=== PATIENT | male | born 1950 | race Caucasian/White ===

== ENCOUNTER 2019-12-04 10:26 | Emergency (ER) | payer MEDICARE, OTHER, SELFPAY ==
--- NOTE | ~2019-12-04 | XR_ITS ---
EXAMINATION: XR lumbar spine 2-3V EXAM DATE: 12/04/2019 11:04 INDICATION: No known recent injury provided at this time. Pain of the lower back. TECHNIQUE: Lumber spine frontal, lateral, lateral L5-S1 projections for interpretation. There is no prior study for comparison. FINDINGS: There is moderate disc disease at L3-4, mild to moderate at the other lumbar levels. There is mild to moderate lumbar facet arthropathy. There is 2-3 mm retrolisthesis L1 on L2, L2 on L3 and L3 on L4. Sacrum, sacroiliac joints, sacral arcuate lines are intact. Paraspinal soft tissue is unrem arkable. IMPRESSION: 1. Mild to moderate lumbar spondylosis. Reviewed, dictated and finalized at location A. [employer] PRINTER
--- NOTE | 2019-12-04 10:28 | ED.GENADULT ---
HPI - General Adult General Chief complaint: Back Pain/Injury Stated complaint: BACK PAIN/CONSTIPATION Time Seen by Provider: 12/04/19 10:44 Source: patient and RN notes reviewed Mode of arrival: ambulatory History of Present Illness HPI narrative: This patient has had a 2-year history of chronic back pain in the lumbar area for which she is seeing a chiropractor for. He has had several adjustments and now sees the chiropractor on a monthly basis for adjustments as a maintenance therapy. He has had a 5 to 6-day history though of increased back pain right lumbar more than left lumbar. The pain radiates down into the lateral right calf and onto the sole of the right foot. It is associated with some numbness sensation but not tingling sensation. He has no left leg or left foot pain or numbness or tingling. He has had no trauma to his back. He states he worked at a [employer] where he did a lot of physical activity until he retired. He is also had constipation during the past 5 days. He has not had a bowel movement in 5 days. He is not having abdominal pain. There is been no blood in the stools or black stools. He has not noticed any abdominal distention. He did go to a pharmacy and picked up generic MiraLAX and used it once without having a bowel movement, but did not take it regularly. He normally has a bowel movement once every 1 to 2 days. He is never had any history of any colon polyps or colon surgeries or cancers. He has not had any heartburn. He is not had any history of pancreatitis, hepatitis, gallbladder disease, Crohn's disease, ulcerative colitis. He has had no nausea, no vomiting, no diarrhea. He has taken [id number] Advil for treatment of the back pain. It has helped a little. Nighttime is worse for him whenever he lies down. The pain is beginning to disturb his sleep. He states he has never been diagnosed as having a ruptured disc in his back in the past. He is having no difficulty starting or controlling his urine stream. He has had no incontinence. He has had no numbness , no tingling, and no pain in the genital or rectal areas. The patient did go to his primary care's office today and talked the office receptionist and they did schedule him an appointment for this problem for December 14, 2019. Related Data Home Medications Medication Instructions Recorded Confirmed atorvastatin 20 mg PO DAILY 12/04/19 12/04/19 ibuprofen [Advil] 200 mg PO Q6H PRN 12/04/19 12/04/19 lisinopril 30 mg PO DAILY 12/04/19 12/04/19 Allergies Allergy/AdvReac Type Severity Reaction Status Date / Time No Known Allergies Allergy Verified 12/04/19 10:41 Review of Systems Review of Systems: Narrative: CONSTITUTIONAL: Denies fever, chills, or sweats. Noncontributory except as pertains to the past medical history and history of present illness. EYES: Denies visual changes, redness, or discharge. ENT: Denies rhinorrhea, congestion, sore throat, or otalgia. CARDIOVASCULAR: Denies chest pain, palpitations, or edema. RESPIRATORY: Denies cough or dyspnea. GASTROINTESTINAL: Denies abdominal pain, nausea, vomiting, or diarrhea. GENITOURINARY: Denies dysuria or hematuria. SKIN: Denies rash or itching. MUSCULOSKELETAL: Denies back pain, joint pain, or myalgia. NEUROLOGIC: Denies headache, numbness, or weakness. PSYCHIATRIC: Denies anxiety or depression. [facility] Family History Family History (Updated 04/27/19 @ 15:19 by DOCTOR UNKNOWN) Father Family history of cardiovascular disease Acute myocardial infarction Family history of coronary artery disease Sibling Family history of lymphoma Social History Social History Smoking status: Never smoker Second hand tobacco smoke exposure: No Alcohol intake: current Comments At time of signature, I have reviewed and agree with nursing past medical, surgical, social, and family history.Please see nursing chart for further information. There is no relevant family history pertinent to the p
[2019-12-04 10:32] VITALS: BP 140/87; PULSE 77; RESP 20; TEMP 36.7; O2SAT 100
== END 2019-12-04 11:26 | disposition home or self-care (01) ==
PROVIDERS: Emergency Provider Family Medicine; PCP Family Medicine
DX: M54.31 Sciatica, right side (principal); K59.00 Constipation, unspecified; E78.00 Pure hypercholesterolemia, unspecified; I10 Essential (primary) hypertension
CPT/HCPCS: 72100; 99213; G0463

== ENCOUNTER 2020-03-28 00:33 | Outpatient (CLI) | payer MEDICARE, OTHER, SELFPAY ==
[2020-03-28 16:41] LABS: SARS-CoV-2 RNA PCR Negative
== END 2020-03-28 00:34 | disposition home or self-care (01) ==
LOC: ANHCOVIDDT 00:33
PROVIDERS: PCP Family Medicine; Visit Provider Internal Medicine Gastroenterology
DX: Z01.812 Encounter for preprocedural laboratory examination (principal); Z20.828 Contact with and (suspected) exposure to other viral communicable diseases
CPT/HCPCS: 87635; C9803; U0003

== ENCOUNTER 2020-03-30 03:08 | Day surgery (SDC) | payer MEDICARE, OTHER, SELFPAY ==
[2020-03-24 15:10] VITALS: BMI 22.4
[2020-03-30 08:21] VITALS: BP 146/85; PULSE 73; RESP 18; TEMP 37.1; O2SAT 100; BMI 18.3
[2020-03-30] MEDS: LACTATED RINGERS 1,000 ML 150 ML IV CONT (08:31)
--- NOTE | 2020-03-30 09:39 | WPDANESEPPF ---
Anes - Initial Pre Proc Eval Procedure: Operation Date: 03/30/20 09:30 Proposed Procedures p Colonoscopy - Sebastien Stoddard MD Date/Time: 03/30/20 09:39 Surgeon: Sebastien Stoddard MD Pre Op Diagnosis: constipation Patient Data Age: 69 Gender: M Height: 6 ft 6 in Weight: 72.3 kg Last Vital Signs Temp 98.8 F 03/30/20 08:21 Pulse 73 03/30/20 08:21 Resp 18 03/30/20 08:21 BP 146/85 H 03/30/20 08:21 Pulse Ox 100 03/30/20 08:21 Allergies Allergy/AdvReac Type Severity Reaction Status Date / Time No Known Allergies Allergy Verified 03/30/20 08:18 Home Medications Medication Instructions Recorded Confirmed Type atorvastatin 20 mg tablet 20 mg PO DAILY #30 tablet 12/14/19 03/30/20 Rx lisinopril 30 mg tablet 30 mg PO DAILY #30 tablet 12/14/19 03/30/20 Rx Patient hx anesthesia problems: none Family hx anesthesia problems: none PMFSH Past Medical History Medical History (Updated 03/15/20 @ 09:59 by Mecca Remy MD) Chronic low back pain Hyperlipidemia Hypertension Surgical History Surgical History No pertinent past surgical history Social History Social History Smoking status: Never smoker Second hand tobacco smoke exposure: No Alcohol intake: current Substance use: never Substance use type: does not use Gender identity (if verbalized by the patient): Male Spiritual care concerns: Yes Agree to blood products: Yes Anes - Eval Final PreProcedure Day of Procedure 03/30/20 09:39 Patient weight: normal Heart: regular rate and rhythm Lungs: clear to auscultation Airway: Mallampati scale class II Neurological: alert and oriented Last oral intake: >/= 8 hours ASA classification: II Emergent: no Anesthetic plan: proceed Anesthesia type and monitoring: general GIVS and standard monitoring Informed Consent: The patient's anesthetic plan and its attendant risks and benefits were discussed with the patient/family/POA. Questions were solicited and answers provided to the satisfaction of the patient/family/POA.
[2020-03-30] MEDS: CENTRAL LINE FLUSH 20 ML XX (11:29)
--- NOTE | 2020-03-30 11:47 | WPDHPUPDATE1 ---
History and Physical Update Update Date/Time: 03/30/20 11:47 History and Physical has been reviewed, including an updated exam of the patient. There are NO changes in the patient's condition. Risks, benefits, and alternatives have been discussed and questions answered. Patient agrees to proceed with procedure.
[2020-03-30 11:51] VITALS: BP 80/51; PULSE 67; RESP 18; O2SAT 100
[2020-03-30 12:01] VITALS: BP 78/48; PULSE 67; RESP 18; O2SAT 100
[2020-03-30 12:11] VITALS: BP 106/68; PULSE 69; RESP 18; O2SAT 100
[2020-03-30 12:21] VITALS: BP 115/70; PULSE 69; RESP 18; O2SAT 100
== END 2020-03-30 12:46 | disposition home or self-care (01) ==
PROVIDERS: PCP Family Medicine; Visit Provider Internal Medicine Gastroenterology
PROC: 0DJD8ZZ Inspection of Lower Intestinal Tract, Via Natural or Artificial Opening Endoscopic (ICD-10-PCS; CPT 45378; principal; 2020-03-30 09:30)
DX: K59.00 Constipation, unspecified (principal); D12.3 Benign neoplasm of transverse colon; D12.2 Benign neoplasm of ascending colon; D12.8 Benign neoplasm of rectum; K64.8 Other hemorrhoids; I10 Essential (primary) hypertension; E78.5 Hyperlipidemia, unspecified; M54.9 Dorsalgia, unspecified; G89.29 Other chronic pain
CPT/HCPCS: 45385; 45381; 88305; J2370; J2704; J7120

== ENCOUNTER 2020-05-31 12:25 | Outpatient (CLI) | payer MEDICARE, OTHER, SELFPAY ==
--- NOTE | ~2020-05-31 | CT_ITS ---
EXAMINATION: CT abd pelvis lumbar wo con EXAM DATE: 05/31/2020 12:57 INDICATION: Right upper quadrant and right lower quadrant pain. TECHNIQUE: Spiral CT of the abdomen and pelvis and lumbar spine was performed without contrast. Axi al, coronal and sagittal images were reviewed. The dose-length product (DLP) for this examination wa s 308.14 mGy-cm. The exposure was tailored according to patient size (auto mA exposure control), and iterative reconstruction (ASIR) was used as additional dose reduction technique. There is no prior study for comparison. FINDINGS: The liver, spleen, adrenal glands and pancreas are unremarkable. Gallbladder is unremarkab le. There is no nephrolithiasis or hydronephrosis. There is mild prostatomegaly. The bladder is u nremarkable. There is no retroperitoneal or pelvic lymphadenopathy. There is mild to moderate scat tered arteriosclerotic disease. The appendix is normal. The stomach and small bowel are unremarkable. There is expected amount of c olonic stool. No free intraperitoneal gas. The heart is normal in size. There are no pericardial or pleural effusions. The lung bases are unremarkable. There are no osteoblastic or osteolytic lesi ons identified. LUMBAR SPINE: Paraspinal soft tissue is unremarkable. There are no acute fractures identified. Sacroi liac joints are unremarkable. There is no spondylolysis. There is 2-3 mm retrolisthesis L3 on L4. The vertebral bodies are otherwise aligned. There is moderate disc disease from T11 through L5, mild to moderate L5-S1. T12-L1: There is a mild diffuse disc bulge. Facet arthropathy: Mild. Neural foraminal stenosis: Mild right. Central canal stenosis: Mild. L1-L2: There is a mild to moderate diffuse disc bulge. Facet arthropathy: Mild to moderate. Neural foraminal stenosis: Mild to moderate bilateral. Central canal stenosis: Mild to moderate. L2-L3: There is a moderate diffuse disc bulge. Facet arthropathy: Moderate. Neural foraminal stenosis: Mild to moderate bilateral. Central canal stenosis: Mild to moderate. L3-L4: There is a moderate diffuse disc bulge. Facet arthropathy: Moderate. Neural foraminal stenosis: Moderate bilateral. Central canal stenosis: Moderate. L4-L5: There is a moderate diffuse disc bulge. Facet arthropathy: Moderate to severe. Neural foraminal stenosis: Moderate bilateral. Central canal stenosis: Moderate to severe. L5-S1: There is a mild to moderate diffuse disc bulge. Facet arthropathy: Severe left, moderate right. Neural foraminal stenosis: Mild to moderate left, mild right. Central canal stenosis: Mild to moderate. IMPRESSION: 1. L4-5 moderate to severe central canal stenosis. 2. Overall moderate lumbar spondylosis. 3. Mild prostatomegaly. 4. No acute intra-abdominal findings. Reviewed, dictated and finalized at location A.
== END 2020-05-31 12:26 | disposition home or self-care (01) ==
PROVIDERS: PCP Family Medicine; Visit Provider Family Medicine
DX: M47.896 Other spondylosis, lumbar region (principal); N40.0 Benign prostatic hyperplasia without lower urinary tract symptoms
CPT/HCPCS: 72131; 72133; 74176

== ENCOUNTER 2020-08-22 06:45 | Outpatient (CLI) | payer MEDICARE, OTHER, SELFPAY ==
--- NOTE | ~2020-08-22 | MR_ITS ---
EXAMINATION: MR lumbar spine wo con DATE: 08/22/2020 07:48 INDICATION: Intervertebral disc disorder with radiculopathy. Low back pain and right buttock pain. TECHNIQUE: Magnetic resonance imaging (MRI) of the lumbar spine was performed without intravenous con trast. Sequences included sagittal T2-weighted FSE, sagittal T2-weighted FS FSE, sagittal T1-weighted FSE, and axial T2-weighted FSE. COMPARISON: Lumbar spine radiographs 12/04/2019 FINDINGS: There is 3 mm retrolisthesis of L1 on L2. There is mild chronic anterior wedging of T12 and L1 vertebral bodies. There are Schmorl's nodes at multiple levels. There is moderately decreased dis c height at T12-L1, L1-L2, and L2-L3, severely decreased disc height at L3-L4, and moderately decreas ed disc height at L4-L5. The distal spinal cord signal intensity is normal. The conus medullaris is a t L1. The following disc levels are specifically discussed: T12-L1: The disc is bulging and has an annular fissure. There is mild bilateral facet joint osteoarth ritis. There is mild bilateral neural foraminal stenosis. There is mild central canal stenosis. L1-L2: The disc is bulging and has an annular fissure. There is mild bilateral facet joint osteoarthr itis. There is mild right and moderate left neural foraminal stenosis. There is mild central canal st enosis. L2-L3: The disc is bulging and has an annular fissure. There is moderate right and mild left facet jhoan int osteoarthritis. There is moderate bilateral neural foraminal stenosis. There is mild central mireya l stenosis. L3-L4: The disc is bulging as an annular fissure. There is moderate bilateral facet joint osteoarthri tis. There is moderate bilateral neural foraminal stenosis. There is mild central canal stenosis. L4-L5: The disc is bulging and has an annular fissure. There is severe bilateral facet joint osteoart hritis. There is moderate bilateral neural foraminal stenosis. There is moderate central canal stenos is. L5-S1: The disc is bulging. There is severe bilateral facet joint osteoarthritis. There is mild bilat eral neural foraminal stenosis. There is mild central canal stenosis. IMPRESSION: 1. Severe lumbar spondylosis. Reviewed, dictated and finalized at location A.
== END 2020-08-22 06:46 | disposition home or self-care (01) ==
PROVIDERS: PCP Family Medicine; Visit Provider Neurological Surgery
DX: M47.896 Other spondylosis, lumbar region (principal)
CPT/HCPCS: 72148

== ENCOUNTER 2024-07-03 10:56 | Outpatient (CLI) | payer MEDICARE, OTHER, SELFPAY ==
--- NOTE | ~2024-07-03 | XR_ITS ---
EXAMINATION: XR abdomen obstructive series DATE: 07/03/2024 11:18 INDICATION: Constipation. TECHNIQUE: Upright and supine views of the abdomen on 3 radiographs were obtained. COMPARISON: CT abdomen and pelvis 05/31/2020 FINDINGS: There are no dilated loops of bowel. There is a large volume of stool in the colon. No free intraperitoneal gas. IMPRESSION: 1. Nonobstructive bowel gas pattern. Reviewed, dictated and finalized at location A.
== END 2024-07-03 10:57 | disposition home or self-care (01) ==
PROVIDERS: PCP Family Medicine; Visit Provider Physician Assistant Medical
DX: K59.00 Constipation, unspecified (principal)
CPT/HCPCS: 74019

== ENCOUNTER 2024-07-29 06:36 | Outpatient (CLI) | payer MEDICARE, OTHER, SELFPAY ==
--- NOTE | ~2024-07-29 | CT_ITS ---
CT of the Abdomen and Pelvis: Indication: Abdominal pain Technique: 2.5 mm axial scans were obtained through the abdomen and pelvis following intravenous adm inistration of 100 cc of Omnipaque 350. Dose reduction technique was used on this scan by utilizing a utomated exposure control and iterative reconstruction technique. The dose-length product (DLP) was 2 22.11 mGy-cm. Findings: Scans through the lung bases are unremarkable. The liver, spleen, pancreas, gallbladder, adrenals and kidneys are within normal limits. There are at herosclerotic calcifications of the aorta. No lymphadenopathy. No bowel obstruction or bowel wall thickening. There is no evidence to suggest acute appendicitis. Images through the pelvis were performed. Urinary bladder unremarkable. Prostate gland is enlarged. A scites. Impression: No acute abnormality. Enlarged prostate gland. Reviewed, dictated and finalized at location . Impression: No acute abnormality. Enlarged prostate gland.
[2024-07-29 07:19] LABS: Estimated Glomerular Filt Rate > 60
== END 2024-07-29 06:37 | disposition home or self-care (01) ==
PROVIDERS: PCP Family Medicine; Visit Provider Family Medicine
DX: R10.9 Unspecified abdominal pain (principal); N40.0 Benign prostatic hyperplasia without lower urinary tract symptoms
CPT/HCPCS: 74177; Q9967

== ENCOUNTER 2024-08-20 12:44 | Emergency (ER) | payer MEDICARE, OTHER, SELFPAY ==
[2024-08-20 13:01] VITALS: BP 117/80; PULSE 80; RESP 18; TEMP 36.7; O2SAT 100
--- NOTE | 2024-08-20 13:45 | ED.GENADULT ---
HPI - General Adult General Chief complaint: Unspecified Stated complaint: constipation and R sided back pain Time Seen by Provider: 08/20/24 13:41 Source: patient Mode of arrival: ambulatory Limitations: no limitations History of Present Illness HPI narrative: This is a 74-year-old male who presents to the ED for chief complaint of chronic constipation. Patient reports that he has abdominal pain and back pain and attributes this to his constipation. States that he is being seen by his PCP for this multiple times and has not had any relief with Linzess. Patient is concerned because he has been losing weight but also states that he has not been eating as much due to discomfort from constipation. States that he is worried about cancer but he had a colonoscopy 4 years ago. He has GI appointment upcoming on September 03. States last bowel movement was 2 days ago. Denies nausea, vomiting, fevers, chills or any further complaint. Related Data Allergies Allergy/AdvReac Type Severity Reaction Status Date / Time No Known Allergies Allergy Verified 08/20/24 12:45 Review of Systems Review of Systems: All systems as dictated in [facility] Past Medical History Medical History Adenomatous colon polyp Aortic stenosis Chronic low back pain Encounter for immunization Heart murmur Hyperlipidemia Hypertension Spinal stenosis at L4-L5 level Surgical History Surgical History No pertinent past surgical history Family History Family History Father Family history of cardiovascular disease Acute myocardial infarction Family history of coronary artery disease Sibling Family history of lymphoma Social History Social History Smoking status: Never smoker Second hand tobacco smoke exposure: No Alcohol intake: current Alcohol use details: Occasional. Substance use: never Substance use type: does not use Lack of Transportation: No Lack of Food: Never True Current Housing: I Have Housing Concerned About Future Housing: No Difficulty Paying Gas/Electric Bills: No Difficulty Paying for Meds: No Currently Unemployed: No Education: High School Diploma/GED Difficulty w/ Childcare or Family Care: No Living arrangements: alone Occupation/Education: retired Gender identity (if verbalized by the patient): Male Sexual Orientation (if Verbalized by the Patient): Straight or Heterosexual Spiritual care concerns: Yes Agree to blood products: Yes Exam Narrative: GENERAL: Well-appearing, well-nourished, and in no acute distress. HEAD: Normocephalic, atraumatic. EYES: PERRLA and EOMI. ENT: Nares clear, no rhinorrhea or epistaxis. Mucous membranes moist. Oropharynx without tonsillar hypertrophy exudate or other lesions. NECK: Supple. No adenopathy or masses. CHEST: No respiratory distress. Clear to auscultation. No wheezes rales or rhonchi HEART: Regular rate and rhythm. No murmur heard. Normal peripheral pulses. ABDOMEN: Soft, nontender, nondistended, normal active bowel sounds. MSK: Normal range of motion. No edema. SKIN: Warm, dry, no rash. NEURO: Alert and oriented x4. No focal deficits. PSYCH: Normal mood and affect. Course Vital Signs Vital signs: Vital Signs Temperature 98.1 F 08/20/24 13:01 Pulse Rate 80 08/20/24 13:01 Respiratory Rate 18 08/20/24 13:01 Blood Pressure 117/80 08/20/24 13:01 Pulse Oximetry 100 08/20/24 13:01 Oxygen Delivery Room Air 08/20/24 13:01 Temperature 98.1 F 08/20/24 13:01 Pulse Rate 80 08/20/24 13:01 Respiratory Rate 18 08/20/24 13:01 Blood Pressure 117/80 08/20/24 13:01 Pulse Oximetry 100 08/20/24 13:01 Oxygen Delivery Room Air 08/20/24 13:01 Medical Decision Making [facility] Narrative Medical decision making narrative: This is a 74 yo male who presents to the ED for chief complaint of chronic constipation. Vitals are normal. Exam shows no abdominal tenderness. Does not appear acutely ill. Shared decision making regarding his course today. We have agreed that he would likely not benefit from lab work or more imaging today as he just had a CT scan 2 weeks ago for this constipation. Try Rx for senna and encouraged follow-up with PCP on this issue. Patient will be discharged in stable condition. Supportive measures discussed and return precautions given. Patient is understanding and agreeable with plan for discharge with PCP follow-up. Vital Signs Vital Signs: Vital Signs Temperature 98.1 F 08/20/24 13:01 Pulse Rate 80 08/20/24 13:01 Respiratory Rate 18 08/20/24 13:01 Blood Pressure 117/80 08/20/24 13:01 Pulse Oximetry 100 08/20/24 13:01 Oxygen Delivery Room Air 08/20/24 13:01 Temperature 98.1 F 08/20/24 13:01 Pulse Rate 80 08/20/24 13:01 Respiratory Rate 18 08/20/24 13:01 Blood Pressure 117/80 08/20/24 13:01 Pulse Oximetry 100 08/20/24 13:01 Oxygen Delivery Room Air 08/20/24 13:01 Discharge Plan Discharge Clinical Impression: Chronic constipation Patient Disposition: Home, Self-Care Condition: Stable Instructions: Antibiotic Form Additional Instructions: Your exam today is reassuring overall. Laxative and stool softener have been prescribed. Please take these as prescribed and follow-up with your PCP regarding chronic constipation. Continue to follow-up with GI as well. You may need to ask your doctor about taking GoLYTELY for bowel prep nothing else works. If you have any new or worsening symptoms please return to the ER for further evaluation. Prescriptions: New bisacodyl [Laxative (bisacodyl)] 5 mg tablet,delayed release (DR/EC) 5 mg PO .qd Qty: 30 0RF docusate sodium [Colace] 100 mg capsule 100 mg PO BID Qty: 30 0RF No Action atorvastatin 20 mg tablet 20 mg PO DAILY Qty: 30 11RF lisinopril 30 mg tablet 30 mg PO DAILY Qty: 30 11RF celecoxib [Celebrex] 200 mg capsule 200 mg PO DAILY Qty: 30 0RF Rx Instructions: for pain Linzess 145 mcg capsule 145 mcg PO DAILY Qty: 30 0RF Follow-up/Referrals: Selena Talbot MD [Primary Care Provider] - Time of Disposition: 14:20
== END 2024-08-20 14:40 | disposition home or self-care (01) ==
PROVIDERS: Emergency Provider Physician Assistant; PCP Family Medicine
DX: K59.09 Other constipation (principal); I35.0 Nonrheumatic aortic (valve) stenosis; I10 Essential (primary) hypertension; E78.5 Hyperlipidemia, unspecified; Z86.0101 Personal history of adenomatous and serrated colon polyps; Z79.899 Other long term (current) drug therapy
CPT/HCPCS: 99283

== ENCOUNTER 2024-08-27 14:44 | Outpatient (CLI) | payer MEDICARE, OTHER, SELFPAY ==
[2024-08-27 15:35] LABS: Basophils Percent Auto 0.6 % (0.2-1.2); Eosinophils Absolute Auto 0.1 K/mm3 (0-0.3); Eosinophils Percent Auto 1.2 % (0-4.4); Hematocrit 36.9 % (42.0-52.0); Hemoglobin 13.2 g/dL (14.0-18.0); Immature Granulocyte Absolute 0.02 K/mm3 (0.00-0.031); Immature Granulocyte Percent A 0.3 % (0-0.5); Lymphocytes Absolute Auto 1.37 K/mm3 (0.9-3.2); Lymphocytes Percent Auto 20.8 % (18.3-44.2); Mean Corpuscular HGB Conc 35.8 g/dl (32-36); Mean Corpuscular Hemoglobin 35.2 pg (26-34); Mean Corpuscular Volume 98.4 fl (80-100); Mean Platelet Volume 10.7 fl (7.4-10.4); Monocytes Absolute Auto 0.7 K/mm3 (0.1-0.6); Monocytes Percent Auto 9.9 % (2.6-8.5); Neutrophils Absolute Auto 4.4 K/mm3 (1.3-6.7); Neutrophils Percent Auto 67.2 % (45.5-73.1); Platelet Count Result 226 k/mm3 (150-375); Red Blood Count 3.75 M/mm3 (4.6-6.20); Red Cell Distribution Width 12.8 % (11.5-14.5); White Blood Count 6.6 K/mm3 (4.5-10.0)
[2024-08-27 15:42] LABS: Anion Gap 9 mmol/L (4-12); Blood Urea Nitrogen 15 mg/dL (9-20); Calcium 9.3 mg/dL (8.4-10.2); Carbon Dioxide 25 mmol/L (22-30); Chloride 95 mmol/L (98-107); Estimated Glomerular Filt Rate > 60; Glucose 97 mg/dL (65-110); Potassium 4.3 mmol/L (3.4-5.0); Sodium 129 mmol/L (137-145)
[2024-08-27 15:57] LABS: Iron 80 ug/dL (49-181)
[2024-08-27 16:07] LABS: Percent Iron Saturation 25 % (20-50)
== END 2024-08-27 14:45 | disposition home or self-care (01) ==
PROVIDERS: PCP Family Medicine; Visit Provider Nurse Practitioner Family
DX: D12.6 Benign neoplasm of colon, unspecified (principal); E87.1 Hypo-osmolality and hyponatremia
CPT/HCPCS: 36415; 80048; 83540; 83550; 85025

== ENCOUNTER 2024-09-11 15:47 | Emergency (ER) | payer MEDICARE, OTHER, SELFPAY ==
--- NOTE | ~2024-09-11 | CT_ITS ---
CLINICAL INDICATION: Lower abdominal pain COMPARISON: 07/29/2024 and dating back to 05/31/2020. TECHNIQUE: Multiple contiguous axial images of the abdomen and pelvis were performed following the ad ministration of with 100 mL Omnipaque-350 intravenous contrast The dose-length product (DLP) was 229.42 mGy-cm. Automated exposure control and iterative reconstruction technique were employed. FINDINGS/OBSERVATIONS: Visualized lower thorax: The bilateral lung bases are clear. The heart is of normal size, without pericardial effusion. Small hiatal hernia is present. Liver: The liver demonstrates homogeneous enhancement is not enlarged measuring 16 cm in longitudinal dimens ion. Gallbladder and biliary system: The gallbladder is distended, and otherwise unremarkable. Pancreas: The pancreas enhances homogeneously without ductal dilatation. Spleen: The spleen enhances homogeneously and is not enlarged measuring 6 cm in longitudinal dimension. Kidneys: The bilateral kidneys enhance symmetrically without hydronephrosis or renal calculi. Adrenal glands: Unremarkable. Gastrointestinal tract: Fecal stasis throughout the colon, most prominent within the descending and distal transverse colons. Multiple loops of fluid-filled small bowel are identified within the pelvis with thickening and infil tration of the omentum suggesting venous congestion. Appendix: The appendix is not definitively visualized. However, no pericecal inflammatory change is identified suggest the presence of acute appendicitis. Vasculature: Calcified atherosclerotic disease within the abdominal aorta without aneurysmal dilatation or dissect ion. Lymph nodes: No pathologically enlarged or morphologically suspicious lymph nodes within the retroperitoneum or at the root of the mesentery. Pelvic structures: The bladder is distended with thickened beckford and surrounding inflammatory change for which a cystiti s is suspected. The prostate gland demonstrates heterogeneous attenuation and is enlarged demonstrating mass effect o n the base of the bladder. Bulky calcifications are also noted. Body wall and musculoskeletal: Trace degenerative disease within the lower thoracic or lumbosacral spine, with osteophyte formation, disc space narrowing and vacuum phenomena.. IMPRESSION: Findings suggesting cystitis, for which clinical correlation is needed. Heterogeneous attenuation of the enlarged prostate gland, as detailed above. Reviewed, dictated and finalized at location [facility]
[2024-09-11 15:58] VITALS: BP 128/90; PULSE 84; RESP 16; TEMP 36.8; O2SAT 100
--- NOTE | 2024-09-11 16:12 | ED_ITS ---
HPI - Abdominal Pain General Chief Complaint: Abdominal Pain <Kellen Rowley PA-C - Last Filed: 09/11/24 16:16> Stated Complaint: constipation <Kellen Rowley PA-C - Last Filed: 09/11/24 16:16> Time Seen by Provider: 09/11/24 16:13 <Kellen Rowley PA-C - Last Filed: 09/11/24 16:16> Focused HPI: This is a 74 year old male that presents to the ER for constipation. Ongoing over the last several months. Reports he has not had a good bowel movement in months. Reports he has taken Linzess without relief. He has seen GI for this complaint. Also reports he has had right sided low back pain ongoing for months as well. Reports the pain radiates down the leg. Worse at night. He has been using stool softeners at home for constipation. Reports diffuse abdominal pain. Denies fever, vomiting, dysuria, hematuria. GENERAL: Elderly, well-nourished, and in no acute distress. HEAD: Normocephalic, atraumatic. CHEST: Clear to auscultation. ?No respiratory distress. HEART: Regular rate and rhythm.? NEURO: ?Alert and oriented x3. Patient screened in triage and initial orders placed.? ?Additional care and disposition to be based upon?diagnostic testing and treatment. <Kellen Rowley PA-C - Last Filed: 09/11/24 16:16> Focused HPI: This is a 74 year old male that presents to the ER for constipation. Ongoing over the last several months. Reports he has not had a good bowel movement in months. Reports he has taken Linzess without relief. He has seen GI for this complaint. Also reports he has had right sided low back pain ongoing for months as well. Reports the pain radiates down the leg. Worse at night. He has been using stool softeners at home for constipation. Reports diffuse abdominal pain. Denies fever, vomiting, dysuria, hematuria. GENERAL: Elderly, well-nourished, and in no acute distress. HEAD: Normocephalic, atraumatic. CHEST: Clear to auscultation. ?No respiratory distress. HEART: Regular rate and rhythm.? NEURO: ?Alert and oriented x3. Patient screened in triage and initial orders placed.? ?Additional care and disposition to be based upon?diagnostic testing and treatment. <Nohemi Méndez PA-C - Last Filed: 09/11/24 23:42> Source: patient and old records reviewed <Nohemi Méndez PA-C - Last Filed: 09/11/24 23:42> Mode of arrival: ambulatory <Nohemi Méndez PA-C - Last Filed: 09/11/24 23:42> Limitations: no limitations <Nohemi Méndez PA-C - Last Filed: 09/11/24 23:42> History of Present Illness HPI narrative: Agree with above HPI. Patient reports constipation and right lower back pain has been going on since April. Per records, patient has been reporting cons tipation and lower back pain as far back as 2019. Has been taking Linzess and stool softeners daily for the past 1 month. Reports he has a small bowel movement 3 to 4 times a week. Has been seen GI for this and is scheduled for colonoscopy soon. <Nohemi Méndez PA-C - Last Filed: 09/11/24 23:42> Related Data Allergies/Adverse Reactions: Allergies Allergy/AdvReac Type Severity Reaction Status Date / Time No Known Allergies Allergy Verified 09/08/24 13:14 <Kellen Rowley PA-C - Last Filed: 09/11/24 16:16> Review of Systems Review of Systems: All systems reviewed & are unremarkable except as noted in HPI. <Nohemi Méndez PA-C - Last Filed: 09/11/24 23:42> All systems reviewed & are unremarkable except as noted in HPI and below <Nohemi Méndez PA-C - Last Filed: 09/11/24 23:42> [facility] Past Medical History Medical History: Medical History Adenomatous colon polyp Aortic stenosis Chronic low back pain Encounter for immunization Heart murmur Hyperlipidemia Hypertension Spinal stenosis at L4-L5 level <Kellen Rowley PA-C - Last Filed: 09/11/24 16:16> Surgical History Surgical History: Surgical History No pertinent past surgical history <Kellen Rowley PA-C - Last Filed: 09/11/24 16:16> Family History Family History: Family History Father Family history of cardiovascular disease Acute myocardial infarction Family history of coronary artery disease Sibling Family history of lymphoma <Kellen Rowley PA-C - Last Filed: 09/11/24 16:16> Social History Social History: Social History Smoking status: Never smoker Second hand tobacco smoke exposure: No Alcohol intake: former Alcohol use details: Occasional. Substance use: never Substance use type: does not use Lack of Transportation: No Lack of Food: Never True Current Housing: I Have Housing Concerned About Future Housing: No Difficulty Paying Gas/Electric Bills: No Difficulty Paying for Meds: No Currently Unemployed: No Education: High School Diploma/GED Difficulty w/ Childcare or Family Care: No Living arrangements: alone Occupation/Education: retired Gender identity (if verbalized by the patient): Male Sexual Orientation (if Verbalized by the Patient): Straight or Heterosexual Spiritual care concerns: No Agree to blood products: Yes <Kellen Rowley PA-C - Last Filed: 09/11/24 16:16> Exam Narrative: GENERAL: Elderly, thin, non-toxic, in no acute distress. HEAD: Normocephalic, atraumatic. RESPIRATORY: Airway patent, respirations nonlabored. Clear to auscultation bilaterally, no rales, rhonchi, wheezing. CARDIOVASCULAR: Regular rate and rhythm without murmurs, rubs, or gallops. ABDOMINAL: Soft, mild diffuse tenderness, nondistended. Normoactive BS. MUSCULOSKELETAL: Moves all extremities. No gross deformities. Mild tenderness in right lumbosacral region. No midline spinal tenderness. SKIN: Warm, dry, normal color. NEURO: A&O X3. Speech clear. Cranial nerves II-XII grossly intact. Steady gait. No ataxic movements. PSYCHIATRIC: Anxious. Normal interaction. <TISH Ortiz Last Filed: 09/11/24 23:42> Course Vital Signs Vital signs: Vital Signs Temperature 98.2 F 09/11/24 15:58 Pulse Rate 84 09/11/24 15:58 Respiratory Rate 16 09/11/24 15:58 Blood Pressure 128/90 09/11/24 15:58 Pulse Oximetry 100 09/11/24 15:58 Oxygen Delivery Room Air 09/11/24 15:58 Temperature 98.2 F 09/11/24 15:58 Pulse Rate 77 09/11/24 17:46 Respiratory Rate 16 09/11/24 17:46 Blood Pressure 128/84 09/11/24 17:46 Pulse Oximetry 100 09/11/24 17:46 Oxygen Delivery Room Air 09/11/24 15:58 <Kellen Rowley PA-C - Last Filed: 09/11/24 16:16> Vital Signs Temperature 98.2 F 09/11/24 15:58 Pulse Rate 84 09/11/24 15:58 Respiratory Rate 16 09/11/24 15:58 Blood Pressure 128/90 09/11/24 15:58 Pulse Oximetry 100 09/11/24 15:58 Oxygen Delivery Room Air 09/11/24 15:58 Temperature 98.2 F 09/11/24 15:58 Pulse Rate 77 09/11/24 17:46 Respiratory Rate 16 09/11/24 17:46 Blood Pressure 128/84 09/11/24 17:46 Pulse Oximetry 100 09/11/24 17:46 Oxygen Delivery Room Air 09/11/24 15:58 <Nohemi Méndez PA-C - Last Filed: 09/11/24 23:42> MDM - Abdominal Pain MDM Narrative Medical decision making narrative: Patient presented to ED with several month history of constipation. Per records, constipation complaints go back as far as 2019. Vital signs are stable today. Patient is very anxious about his constipation, stating he needs answers, he needs help. Laboratory studies are fairly unremarkable. No leukocytosis. Stable H& H. Hyponatremia of at 126. Chloride low at 92. Given fluids. Patient does have history of chronic hyponatremia, similar records in the past. He does report that he has not been eating or drinking much over the last few days due to his constipation. He denies consistent alcohol use. UA without signs of infection. CT abd/pelvis: Unremarkable. Does show BPH, possible cystitis changes. Again UA does not appear infectious. No comment on constipation. Does show mild evidence of fecal stasis. Personal review images shows large amount of gas, but not a significant amount of stool as would be expected. Discussed lab and imaging findings, overall reassuring workup with patient. Had an extensive conversation with patient about constipation management and [id number] therapies to try. Recommended close follow-up with PCP and GI for further evaluation. Given strict return precautions. He agrees with plan. Discharged in stable condition. <Nohemi Méndez PA-C - Last Filed: 09/11/24 23:42> Medical Records Attestation: I reviewed the patient's medical records. <Nohemi Méndez PA-C - Last Filed: 09/11/24 23:42> Lab Data Attestation: I reviewed the patient's lab results. <Nohemi Méndze PA-C - Last Filed: 09/11/24 23:42> Result diagrams: 09/11/24 16:43 09/11/24 16:43 <Kellen Rowley PA-C - Last Filed: 09/11/24 16:16> Labs: Lab Results 09/11/24 09/11/24 Range/Units 16:43 18:20 WBC 6.3 (4.5-10.0) K/mm3 RBC 3.82 L (4.6-6.20) M/mm3 Hgb 13.1 L (14.0-18.0) g/dL Hct 37.9 L (42.0-52.0) % MCV 99.2 (80-100) fl MCH 34.3 H (26-34) pg MCHC 34.6 (32-36) g/dl RDW 12.4 (11.5-14.5) % Plt Count 226 (150-375) k/mm3 MPV 10.6 H (7.4-10.4) fl Immature Gran % (Auto) 0.3 (0-0.5) % Neut % (Auto) 61.2 (45.5-73.1) % Lymph % (Auto) 24.4 (18.3-44.2) % [place] % (Auto) 11.9 H (2.6-8.5) % Eos % (Auto) 1.4 (0-4.4) % Baso % (Auto) 0.8 (0.2-1.2) % Lymph # (Auto) 1.54 (0.9-3.2) K/mm3 [place] # (Auto) 0.8 H (0.1-0.6) K/mm3 Eos # (Auto) 0.1 (0-0.3) K/mm3 Baso # (Auto) 0.1 (0.0-0.1) K/mm3 Abs Immat Gran (auto) 0.02 (0.00-0.031) K/mm3 Absolute Neuts (auto) 3.9 (1.3-6.7) K/mm3 Absolute Nucleated RBC 0.000 (0.0-0.012) K/mm3 Nucleated RBC % 0.0 (0.0-0.2) % Sodium 126 L (137-145) mmol/L Potassium 4.4 (3.4-5.0) mmol/L Chloride 92 L (98-107) mmol/L Carbon Dioxide 25 (22-30) mmol/L Anion Gap 9 (4-12) mmol/L BUN 13 (9-20) mg/dL Creatinine 0.70 (0.7-1.3) mg/dL Estim Creat Clear Calc 76 ml/min Estimated GFR > 60 (59 - ) Glucose 102 (65-110) mg/dL Calcium 9.1 (8.4-10.2) mg/dL Total Bilirubin 1.2 (0.2-1.3) mg/dL AST 25 (17-59) U/L ALT 22 (6-50) U/L Alkaline Phosphatase 66 (38-126) U/L Total Protein 7.0 (6.3-8.2) g/dL Albumin 4.6 (3.5-5.1) g/dL Lipase 73 (23-300) U/L Urine Color Yellow (Yellow) Urine Appearance Clear (Clear) Urine pH 5.5 (5.0-9.0) Ur Specific Tropic 1.020 (1.001-1.035) Urine Protein Negative (Negative) mg/dL Urine Glucose (UA) Negative (Negative) mg/dL Urine Ketones Trace H (Negative) mg/dL Ur Blood (Man) Negative (Negative) Urine Nitrate Negative (Negative) Urine Bilirubin Negative (Negative) Urine Urobilinogen 1.0 (<2.0) mg/dL Leukocyte Esterase Rfl Negative (Negative) ZINA/UL Ethyl Alcohol < 10 (<10) mg/dL <Kellen Rowley PA-C - Last Filed: 09/11/24 16:16> Lab Results 09/11/24 09/11/24 Range/Units 16:43 18:20 WBC 6.3 (4.5-10.0) K/mm3 RBC 3.82 L (4.6-6.20) M/mm3 Hgb 13.1 L (14.0-18.0) g/dL Hct 37.9 L (42.0-52.0) % MCV 99.2 (80-100) fl MCH 34.3 H (26-34) pg MCHC 34.6 (32-36) g/dl RDW 12.4 (11.5-14.5) % Plt Count 226 (150-375) k/mm3 MPV 10.6 H (7.4-10.4) fl Immature Gran % (Auto) 0.3 (0-0.5) % Neut % (Auto) 61.2 (45.5-73.1) % Lymph % (Auto) 24.4 (18.3-44.2) % [place] % (Auto) 11.9 H (2.6-8.5) % Eos % (Auto) 1.4 (0-4.4) % Baso % (Auto) 0.8 (0.2-1.2) % Lymph # (Auto) 1.54 (0.9-3.2) K/mm3 [place] # (Auto) 0.8 H (0.1-0.6) K/mm3 Eos # (Auto) 0.1 (0-0.3) K/mm3 Baso # (Auto) 0.1 (0.0-0.1) K/mm3 Abs Immat Gran (auto) 0.02 (0.00-0.031) K/mm3 Absolute Neuts (auto) 3.9 (1.3-6.7) K/mm3 Absolute Nucleated RBC 0.000 (0.0-0.012) K/mm3 Nucleated RBC % 0.0 (0.0-0.2) % Sodium 126 L (137-145) mmol/L Potassium 4.4 (3.4-5.0) mmol/L Chloride 92 L (98-107) mmol/L Carbon Dioxide 25 (22-30) mmol/L Anion Gap 9 (4-12) mmol/L BUN 13 (9-20) mg/dL Creatinine 0.70 (0.7-1.3) mg/dL Estim Creat Clear Calc 76 ml/min Estimated GFR > 60 (59 - ) Glucose 102 (65-110) mg/dL Calcium 9.1 (8.4-10.2) mg/dL Total Bilirubin 1.2 (0.2-1.3) mg/dL AST 25 (17-59) U/L ALT 22 (6-50) U/L Alkaline Phosphatase 66 (38-126) U/L Total Protein 7.0 (6.3-8.2) g/dL Albumin 4.6 (3.5-5.1) g/dL Lipase 73 (23-300) U/L Urine Color Yellow (Yellow) Urine Appearance Clear (Clear) Urine pH 5.5 (5.0-9.0) Ur Specific Tropic 1.020 (1.001-1.035) Urine Protein Negative (Negative) mg/dL Urine Glucose (UA) Negative (Negative) mg/dL Urine Ketones Trace H (Negative) mg/dL Ur Blood (Man) Negative (Negative) Urine Nitrate Negative (Negative) Urine Bilirubin Negative (Negative) Urine Urobilinogen 1.0 (<2.0) mg/dL Leukocyte Esterase Rfl Negative (Negative) ZINA/UL Ethyl Alcohol < 10 (<10) mg/dL <Nohemi Méndez PA-C - Last Filed: 09/11/24 23:42> Imaging Data Attestation: I personally reviewed and interpreted this imaging study as follows: <Nohemi Méndez PA-C - Last Filed: 09/11/24 23:42> Radiologist's impression: ITS Impressions Abdomen/Pelvis CT 09/11/24 20:37 IMPRESSION: Findings suggesting cystitis, for which clinical correlation is needed. Heterogeneous attenuation of the enlarged prostate gland, as detailed above. <Kellen Rowley PA-C - Last Filed: 09/11/24 16:16> ITS Impressions Abdomen/Pelvis CT 09/11/24 20:37 IMPRESSION: Findings suggesting cystitis, for which clinical correlation is needed. Heterogeneous attenuation of the enlarged prostate gland, as detailed above. <Nohemi Méndez PA-C - Last Filed: 09/11/24 23:42> Discharge Plan Discharge Clinical Impression: Diffuse abdominal pain, Decreased frequency of bowel movements <Kellen Rowley PA-C - Last Filed: 09/11/24 16:16> Patient Disposition: Home, Self-Care <Kellen Rowley PA-C - Last Filed: 09/11/24 16:16> Condition: Stable <TISH Almaraz Last Filed: 09/11/24 16:16> Instructions: Antibiotic Form, Constipation (ED), High Fiber Diet (ED) <Kellen Rowley PA-C - Last Filed: 09/11/24 16:16> Additional Instructions: Stay well hydrated. Recommend high-fiber diet. Recommend increasing fiber intake, you may use Metamucil twice daily. Recommend MiraLax daily. You may also use Tylenol, Gas-X as needed for pain. Follow-up with your primary care doctor and/or GI for further evaluation. Return if you experience worsening or severe pain, unable to keep down food or drink, fevers, difficulty urinating, or any other symptoms of concern. <Kellen Rowley PA-C - Last Filed: 09/11/24 16:16> Prescriptions: No Action linaclotide 290 mcg capsule 290 mcg PO DAILY Qty: 30 3RF bisacodyl [Laxative (bisacodyl)] 5 mg tablet,delayed release (DR/EC) 5 mg PO .qd Qty: 30 0RF atorvastatin 20 mg tablet 20 mg PO DAILY Qty: 30 11RF lisinopril 30 mg tablet 30 mg PO DAILY Qty: 30 11RF celecoxib [Celebrex] 200 mg capsule 200 mg PO DAILY Qty: 30 0RF Rx Instructions: for pain <TISH Almaraz Last Filed: 09/11/24 16:16> Follow-up/Referrals: Selena Talbot MD [Primary Care Provider] - <TISH Almaraz Last Filed: 09/11/24 16:16> Time of Disposition: 21:28 <Kellen Rowley PA-C - Last Filed: 09/11/24 16:16> 21:28 <Nohemi Méndez PA-C - Last Filed: 09/11/24 23:42>
--- NOTE | 2024-09-11 16:44 | PC.NURSE ---
pt states he is unable to urinate at this time.
[2024-09-11 16:51] LABS: Basophils Absolute Auto 0.1 K/mm3 (0.0-0.1); Basophils Percent Auto 0.8 % (0.2-1.2); Eosinophils Absolute Auto 0.1 K/mm3 (0-0.3); Eosinophils Percent Auto 1.4 % (0-4.4); Hematocrit 37.9 % (42.0-52.0); Hemoglobin 13.1 g/dL (14.0-18.0); Immature Granulocyte Absolute 0.02 K/mm3 (0.00-0.031); Immature Granulocyte Percent A 0.3 % (0-0.5); Lymphocytes Absolute Auto 1.54 K/mm3 (0.9-3.2); Lymphocytes Percent Auto 24.4 % (18.3-44.2); Mean Corpuscular HGB Conc 34.6 g/dl (32-36); Mean Corpuscular Hemoglobin 34.3 pg (26-34); Mean Corpuscular Volume 99.2 fl (80-100); Mean Platelet Volume 10.6 fl (7.4-10.4); Monocytes Absolute Auto 0.8 K/mm3 (0.1-0.6); Monocytes Percent Auto 11.9 % (2.6-8.5); Neutrophils Absolute Auto 3.9 K/mm3 (1.3-6.7); Neutrophils Percent Auto 61.2 % (45.5-73.1); Platelet Count Result 226 k/mm3 (150-375); Red Blood Count 3.82 M/mm3 (4.6-6.20); Red Cell Distribution Width 12.4 % (11.5-14.5); White Blood Count 6.3 K/mm3 (4.5-10.0)
[2024-09-11 17:07] LABS: Alanine Aminotransferase 22 U/L (6-50); Albumin Level 4.6 g/dL (3.5-5.1); Alkaline Phosphatase 66 U/L (38-126); Anion Gap 9 mmol/L (4-12); Aspartate Amino Transferase 25 U/L (17-59); Bilirubin,Total 1.2 mg/dL (0.2-1.3); Blood Urea Nitrogen 13 mg/dL (9-20); Calcium 9.1 mg/dL (8.4-10.2); Carbon Dioxide 25 mmol/L (22-30); Chloride 92 mmol/L (98-107); Estimated CRCL calculation 76 ml/min; Estimated Glomerular Filt Rate > 60; Glucose 102 mg/dL (65-110); Lipase 73 U/L (23-300); Potassium 4.4 mmol/L (3.4-5.0); Sodium 126 mmol/L (137-145)
[2024-09-11 17:46] VITALS: BP 128/84; PULSE 77; RESP 16; O2SAT 100
[2024-09-11] MEDS: SODIUM CHLORIDE 0.9% IV 1,000 ML 999 ML IV CONT (18:19)
[2024-09-11 18:34] LABS: Add Urine Microscopic? NO; Appearance Urine Clear (Clear); Bilirubin Urine Negative (Negative); Blood Urine Negative (Negative); Color Urine Yellow (Yellow); Glucose Urine UA Negative (Negative); Ketones Urine Trace mg/dL (Negative); Leukocyte Esterase Ur Negative LEU/UL (Negative); Nitrate Urine Negative (Negative); Protein Urine Negative (Negative); pH Urine 5.5 (5.0-9.0)
--- NOTE | 2024-09-11 19:11 | PC.NURSE ---
Report given to Isaiah GONZALES, all questions answered
[2024-09-11 21:39] LABS: Ethanol < 10 mg/dL (<10)
== END 2024-09-11 21:36 | disposition home or self-care (01) ==
PROVIDERS: Physician Assistant; Emergency Provider Physician Assistant; PCP Family Medicine
DX: R19.4 Change in bowel habit (principal); I35.0 Nonrheumatic aortic (valve) stenosis; I10 Essential (primary) hypertension; E78.5 Hyperlipidemia, unspecified; E87.1 Hypo-osmolality and hyponatremia; Z86.0101 Personal history of adenomatous and serrated colon polyps; N40.0 Benign prostatic hyperplasia without lower urinary tract symptoms
CPT/HCPCS: 36415; 74177; 80053; 81003; 82077; 83690; 85025; 96360; 96361; 99284; J7030; Q9967

== ENCOUNTER 2024-09-29 02:15 | Day surgery (SDC) | payer MEDICARE, OTHER, SELFPAY ==
[2024-09-08 13:41] VITALS: BMI 21.0
[2024-09-29 08:06] VITALS: BP 123/75; PULSE 83; RESP 18; TEMP 36.5; O2SAT 100; BMI 19.8
--- NOTE | 2024-09-29 08:16 | P.PNAN_ITS ---
Anes - Initial Pre Proc Eval Procedure: Operation Date: 09/29/24 09:00 Proposed Procedures p Esophagogastroduodenoscopy & Colonoscopy - Jordy Walters MD Date/Time: 09/29/24 08:16 Surgeon: Jordy Walters MD Pre Op Diagnosis: Hypo-osmolality/abnrml weight loss Patient Data Age: 74 Gender: M Height: 1.83 m Weight: 66.4 kg Last Vital Signs Temp 36.5 C 09/29/24 08:06 Pulse 83 09/29/24 08:06 Resp 18 09/29/24 08:06 BP 123/75 09/29/24 08:06 Pulse Ox 100 09/29/24 08:06 O2 Del Method Room Air 09/29/24 08:06 Allergies Allergy/AdvReac Type Severity Reaction Status Date / Time No Known Allergies Allergy Verified 09/08/24 13:14 Home Medications Medication Instructions Recorded Confirmed Type atorvastatin 20 mg tablet 20 mg PO DAILY #30 tabs 11/03/23 09/29/24 Rx lisinopril 30 mg tablet 30 mg PO DAILY #30 tabs 06/24/24 09/29/24 Rx celecoxib 200 mg capsule (Celebrex) 200 mg PO DAILY #30 caps 08/06/24 09/29/24 Rx bisacodyl 5 mg tablet,delayed 5 mg PO .qd constipation #30 tabs 08/20/24 09/29/24 Rx release (Laxative (bisacodyl)) linaclotide 290 mcg capsule 290 mcg PO DAILY #30 caps 08/27/24 09/29/24 Rx Patient hx anesthesia problems: none Family hx anesthesia problems: none Results Review: All pre-operative results and documents have been reviewed as part of the pre- operative evaluation. [facility] Past Medical History Medical History Adenomatous colon polyp Aortic stenosis Chronic low back pain Encounter for immunization Heart murmur Hyperlipidemia Hypertension Spinal stenosis at L4-L5 level Surgical History Surgical History (Updated 09/29/24 @ 08:17 by Nabil Correa MD) H/O colonoscopy Family History Family History Father Family history of cardiovascular disease Acute myocardial infarction Family history of coronary artery disease Sibling Family history of lymphoma Social History Social History Smoking status: Never smoker Second hand tobacco smoke exposure: No Alcohol intake: former Alcohol use details: Occasional. Substance use: never Substance use type: does not use Lack of Transportation: No Lack of Food: Never True Current Housing: I Have Housing Concerned About Future Housing: No Difficulty Paying Gas/Electric Bills: No Difficulty Paying for Meds: No Currently Unemployed: No Education: High School Diploma/GED Difficulty w/ Childcare or Family Care: No Living arrangements: alone Occupation/Education: retired Gender identity (if verbalized by the patient): Male Sexual Orientation (if Verbalized by the Patient): Straight or Heterosexual Spiritual care concerns: No Agree to blood products: Yes Anes - Eval Final PreProcedure Day of Procedure 09/29/24 08:16 Patient weight: thin Heart: regular rate and rhythm Lungs: clear to auscultation Airway: Mallampati scale class II Neurological: alert and oriented Last oral intake: >/= 8 hours ASA classification: II Emergent: no Anesthetic plan: proceed Anesthesia type and monitoring: general GIVS and standard monitoring Results Review: All pre-operative results and documents have been reviewed as part of the pre- operative evaluation. Informed Consent: The patient's anesthetic plan and its attendant risks and benefits were discussed with the patient/family/POA. Questions were solicited and answers provided to the satisfaction of the patient/family/POA.
[2024-09-29] MEDS: LACTATED RINGERS 1,000 ML 150 ML IV CONT (08:17)
--- NOTE | 2024-09-29 09:18 | PM.IMHP ---
H&P: HPI History of Present Illness Date/Time: 09/29/24 09:18 Chief Complaint: Unintentional weight loss Narrative: this patient has a history of colonic adenomas, last colonoscopy 2019, when he had have 15-20 mm polyp which was piecemeal resected. In addition, patient has been complaining of at least 20 lb weight loss over the past year with no clear explanation, in the absence of abdominal pain, change in bowel habits, nausea, vomiting. He is referred for follow-up colonoscopy and EGD to investigate unintentional weight loss, essentially to rule out gastric neoplasm. Review of Systems Review of Systems: All systems reviewed & are unremarkable except as noted in HPI and below PMFSH Past Medical History Medical History Adenomatous colon polyp Aortic stenosis Chronic low back pain Encounter for immunization Heart murmur Hyperlipidemia Hypertension Spinal stenosis at L4-L5 level Surgical History Surgical History (Updated 09/29/24 @ 08:17 by Nabil Correa MD) H/O colonoscopy Family History Family History Father Family history of cardiovascular disease Acute myocardial infarction Family history of coronary artery disease Sibling Family history of lymphoma Social History Social History Smoking status: Never smoker Second hand tobacco smoke exposure: No Alcohol intake: former Alcohol use details: Occasional. Substance use: never Substance use type: does not use Lack of Transportation: No Lack of Food: Never True Current Housing: I Have Housing Concerned About Future Housing: No Difficulty Paying Gas/Electric Bills: No Difficulty Paying for Meds: No Currently Unemployed: No Education: High School Diploma/GED Difficulty w/ Childcare or Family Care: No Living arrangements: alone Occupation/Education: retired Gender identity (if verbalized by the patient): Male Sexual Orientation (if Verbalized by the Patient): Straight or Heterosexual Spiritual care concerns: No Agree to blood products: Yes Meds Home Medications and Allergies Home Medications Medication Instructions Recorded Confirmed Type atorvastatin 20 mg tablet 20 mg PO DAILY #30 tabs 11/03/23 09/29/24 Rx lisinopril 30 mg tablet 30 mg PO DAILY #30 tabs 06/24/24 09/29/24 Rx celecoxib 200 mg capsule (Celebrex) 200 mg PO DAILY #30 caps 08/06/24 09/29/24 Rx bisacodyl 5 mg tablet,delayed 5 mg PO .qd constipation #30 tabs 08/20/24 09/29/24 Rx release (Laxative (bisacodyl)) linaclotide 290 mcg capsule 290 mcg PO DAILY #30 caps 08/27/24 09/29/24 Rx Allergies Allergy/AdvReac Type Severity Reaction Status Date / Time No Known Allergies Allergy Verified 09/08/24 13:14 Vital Signs Vital Signs - 24 hr 09/29/24 08:06 Temperature 97.7 F Pulse Rate 83 Respiratory Rate 18 Blood Pressure 123/75 Pulse Oximetry 100 Oxygen Delivery Room Air Exam Const: General: cooperative and healthy appearing Resp: Effort & Inspection: normal respiratory effort and able to speak in complete sentences Auscultation: clear to auscultation bilaterally Cardio: Rate: regular rate Rhythm: regular rhythm GI: Inspection: normal to inspection GI Palp: No No hepatosplenomegaly present Auscultation: normal bowel sounds Rectal Exam: deferred Skin: General skin exam: normal color Psych: Appearance: grossly normal Mental Status: mental status grossly normal Assessment and Plan Assessment and plan (1) Adenomatous polyps: Code(s): D36.9 - Benign neoplasm, unspecified site Status: Acute Assessment and Plan: The patient is deemed a good candidate for the procedures. Consent signed. Will proceed. (2) Weight loss: Code(s): R63.4 - Abnormal weight loss Status: Acute
--- NOTE | 2024-09-29 10:07 | SUR.OPER ---
EGD: Start 929, End 934 Colonoscopy: Start 941, End 1002
[2024-09-29 10:08] VITALS: BP 65/39; PULSE 69; RESP 22; O2SAT 100
[2024-09-29 10:18] VITALS: BP 107/72; PULSE 74; RESP 20; O2SAT 100
[2024-09-29 10:28] VITALS: BP 102/66; PULSE 81; RESP 19; O2SAT 100
[2024-09-29 10:38] VITALS: BP 111/64; PULSE 76; RESP 20; O2SAT 100
== END 2024-09-29 10:55 | disposition home or self-care (01) ==
PROVIDERS: PCP Family Medicine; Referring Provider Nurse Practitioner Family; Visit Provider Internal Medicine Gastroenterology
PROC: 0DJ08ZZ Inspection of Upper Intestinal Tract, Via Natural or Artificial Opening Endoscopic (ICD-10-PCS; CPT 43235; principal; 2024-09-29 09:00)
DX: Z09 Encounter for follow-up examination after completed treatment for conditions other than malignant neoplasm (principal); D12.2 Benign neoplasm of ascending colon; K64.1 Second degree hemorrhoids; K29.30 Chronic superficial gastritis without bleeding; R63.4 Abnormal weight loss; Z68.1 Body mass index [BMI] 19.9 or less, adult; E87.1 Hypo-osmolality and hyponatremia; E78.5 Hyperlipidemia, unspecified; I10 Essential (primary) hypertension; I35.0 Nonrheumatic aortic (valve) stenosis; R01.1 Cardiac murmur, unspecified; G89.29 Other chronic pain; M54.50 Low back pain, unspecified; M48.061 Spinal stenosis, lumbar region without neurogenic claudication; Z79.1 Long term (current) use of non-steroidal anti-inflammatories (NSAID); Z84.0 Family history of diseases of the skin and subcutaneous tissue; Z82.49 Family history of ischemic heart disease and other diseases of the circulatory system
CPT/HCPCS: 43239; 45385; 88305; J1596; J2003; J2371; J2704; J7120